=== PATIENT | female | born 1945 | race Caucasian/White ===

== ENCOUNTER 2017-04-21 07:14 | Observation (INO) | payer MEDICARE, BC ==
[~2017-04-21] VITALS: Ht 165.1 cm; Wt 47.6 kg
[~2017-04-21 07:14] MED LIST: ALBU17I INH; ALPR-138 PO; ESTR0.5T PO; FLUTI220I INH; FLUTI44I INH; IPRA17I INH; LEVO75TA3 PO; MEDR4PAK3 PO; METO50TA PO; NASAL ALLERGY SPRAY; ZITH250T PO
[2017-04-21 07:23] VITALS: BP 190/98; PULSE 70; RESP 16; TEMP 97.6; O2SAT 99
[2017-04-21] MEDS ORDERED: ASPIRIN 325 MG TAB PO ONE (07:30)
[2017-04-21] MEDS ORDERED: SODIUM CHLORIDE 0.9% FLUSH 10 ML FLUSH IVF PRN (07:30)
[2017-04-21] MEDS ORDERED: ESTR.625 PO (07:36)
[2017-04-21] MEDS ORDERED: ALPR.25 PO (07:36)
[2017-04-21] MEDS ORDERED: NITR1SUB3 SL (07:36)
[2017-04-21] MEDS ORDERED: LEVO88TA2 PO (07:36)
[2017-04-21] MEDS ORDERED: METO50TA PO (07:36)
[2017-04-21] MEDS ORDERED: ASPI-183 PO (07:36)
[2017-04-21 07:47] VITALS: BP_SYST 184; BP_SYST 190; BP_DIAS 93; BP_DIAS 98
[2017-04-21 07:48] VITALS: O2SAT 98
[2017-04-21 07:52] LABS: AUTOMATED NEUTROPHIL # 6.9 TH/MM3 (1.8-7.7); BASOPHIL % 0.3 % (0.0-2.0); EOSINOPHIL # 0.2 TH/MM3 (0-0.4); EOSINOPHIL % 2.3 % (0.0-4.0); HEMOGLOBIN 13.2 GM/DL (11.6-15.3); LYMPH % 20.7 % (9.0-44.0); MEAN CELL VOLUME 94.8 FL (80.0-100.0); MEAN CORPUSCULAR HEMOGLOBIN 31.3 PG (27.0-34.0); MONO % 3.2 % (0.0-8.0); MONOCYTE # 0.3 TH/MM3 (0-0.9); NEUT % 73.5 % (16.0-70.0); PLATELET COUNT 235 TH/MM3 (150-450); RED BLOOD COUNT 4.22 MIL/MM3 (4.00-5.30); RED CELL DISTRIBUTION WIDTH 12.3 % (11.6-17.2); WHITE BLOOD COUNT 9.4 TH/MM3 (4.0-11.0)
[2017-04-21 08:02] LABS: CHLORIDE 104 MEQ/L (98-107); SODIUM (NA) 138 MEQ/L (136-145)
[2017-04-21 08:05] LABS: CALCIUM 8.7 MG/DL (8.5-10.1)
[2017-04-21 08:06] LABS: ALBUMIN 3.4 GM/DL (3.4-5.0); BICARBONATE 27.8 MEQ/L (21.0-32.0); BLOOD UREA NITROGEN 11 MG/DL (7-18); GLUCOSE,RANDOM 82 MG/DL (74-106); MAGNESIUM 1.8 MG/DL (1.5-2.5)
[2017-04-21 08:09] LABS: ALT (GPT) 14 U/L (10-53); AST (GOT) 15 U/L (15-37); GLOMERULAR FILTRATION RATE 44 ML/MIN (>89)
[2017-04-21 08:11] LABS: TOTAL BILIRUBIN ADULT 0.3 MG/DL (0.2-1.0)
[2017-04-21 08:12] LABS: ALKALINE PHOSPHATASE 53 U/L (45-117)
[2017-04-21 08:14] LABS: TROPONIN I LESS THAN 0.02 NG/ML (0.02-0.05)
[2017-04-21 08:15] LABS: INTERNATIONAL NORMALIZED RATIO 1.1 RATIO
[2017-04-21 08:16] LABS: D-DIMER 0.2 MG/L FEU (0.00-0.50)
--- NOTE | 2017-04-21 08:24 | RADRPT ---
EXAM DATE/TIME: 04/21/2017 07:49 [facility] COMPARISON: No previous studies available for comparison. INDICATIONS : Chest pain. MEDICAL HISTORY : Hypertension. SURGICAL HISTORY : None. ENCOUNTER: Initial ACUITY: 2 weeks PAIN SCORE: 6/10 LOCATION: Bilateral chest FINDINGS: PA and lateral views of the chest demonstrate the lungs to be symmetrically aerated without evidence of mass, infiltrate or effusion. The cardiomediastinal contours are unremarkable. Osseous structure s are intact. CONCLUSION: 1. No acute cardiopulmonary disease. Cristian Miner MD on April 21, 2017 at 8:21 Board Certified Radiologist. This report was verified electronically.
[2017-04-21] MEDS ORDERED: ACETAMINOPHEN 500 MG CPLT PO PRN (09:00)
[2017-04-21] MEDS ORDERED: SODIUM CHLORIDE 0.9% FLUSH 10 ML FLUSH IV FLUSH PRN (09:00)
[2017-04-21] MEDS ORDERED: SODIUM CHLORIDE 0.9% FLUSH 10 ML FLUSH IV FLUSH SCH (09:00)
[2017-04-21] MEDS ORDERED: ASPIRIN 325 MG TAB PO SCH (09:00)
[2017-04-21] MEDS ORDERED: NITROGLYCERIN 0.4 MG SL 25 TABS/BTL SL PRN (09:00)
[2017-04-21] MEDS ORDERED: TEMAZEPAM 15 MG CAP PO PRN (09:00)
[2017-04-21] MEDS ORDERED: ONDANSETRON HCL 4 MG/2 ML VIAL IV PUSH PRN (09:00)
[2017-04-21] MEDS ORDERED: ACETAMINOPHEN/HYDROcodone 325 MG/7.5 MG TAB PO PRN (09:00)
[2017-04-21] MEDS ORDERED: ALPRAZolam 0.25 MG TAB PO PRN (09:00)
[2017-04-21] MEDS ORDERED: REGADENOSON INJ 0.4 MG/5 ML SYR IV ONE (09:02)
--- NOTE | 2017-04-21 09:06 | PD ---
HPI Chief Complaint: Chest Pain Time Seen by Provider: 07:25 Travel History International Travel<30 days: No Contact w/Intl Traveler<30days: No Traveled to known affect area: No History of Present Illness HPI This is a 71-year-old female with history of hypertension presents to the ER complaining of chest pain. Pain is 7 out of 10, substernal, radiates to the left arm and the neck. Pain is started about 2 hours prior to arrival to the ER and lasted for about 20 minutes. Patient states that for the last 2 weeks pain comes and goes randomly and subsides after 20-30 minutes usually. Patient states that pain occurs at rest and it is associated with sweating and palpitations but no shortness of breath or abdominal pain. Patient had aspirin metoprolol 50 mg prior to arrival, she has a prescription for nitroglycerin sublingual but she was afraid to take it because she was told it causes headache. PFSH Past Medical History Anxiety: Yes Diminished Hearing: No Hypertension: Yes Immunizations Current: No Thyroid Disease: Yes Past Surgical History Appendectomy: Yes Hysterectomy: Yes Social History Alcohol Use: No Tobacco Use: No Substance Use: No Allergies-Medications (Allergen,Severity, Reaction): Coded Allergies: cefepime (Unverified Allergy, Severe, 04/21/17) ceftaroline fosamil (Unverified Allergy, Severe, 04/21/17) diatrizoate meglumine (Unverified Allergy, Severe, 04/21/17) gadobenic acid (Unverified Allergy, Severe, 04/21/17) gadodiamide (Unverified Allergy, Severe, 04/21/17) gadoteridol (Unverified Allergy, Severe, 04/21/17) iodixanol (Unverified Allergy, Severe, 04/21/17) iohexol (Unverified Allergy, Severe, 04/21/17) penicillin G (Unverified Allergy, Severe, 04/21/17) Reported Meds & Prescriptions Reported Meds & Active Scripts Active Reported Nitroglycerin SL (Nitroglycerin) 0.4 Mg Subl 0.4 Mg SL DIRECTED PRN ONE TABLET UNDER THE TONGUE NEEDED FOR CHEST PAIN, MAY REPEAT EVERY FIVE MINUTES FOR A TOTAL OF 3 DOSES OR CALL 911 IF NO RELIEF Xanax (Alprazolam) 0.25 Mg Tab 0.25 Mg PO Q8H PRN Levothyroxine (Levothyroxine Sodium) 88 Mcg Tab 88 Mcg PO DAILY Premarin (Estrogens Conjugated) 0.625 Mg Tab 0.625 Mg PO DAILY Aspirin 325 Mg Tab 325 Mg PO ONCE Metoprolol Tartrate 50 Mg Tab 50 Mg PO BID Review of Systems Except as stated in HPI: all other systems reviewed are Neg Physical Exam Narrative GENERAL: Alert oriented 3 no acute distress. SKIN: Focused skin assessment warm/dry. HEAD: Atraumatic. Normocephalic. EYES: Pupils equal and round. No scleral icterus. No injection or drainage. ENT: No nasal bleeding or discharge. Mucous membranes pink and moist. NECK: Trachea midline. No JVD. CARDIOVASCULAR: Regular rate and rhythm. No murmur appreciated. RESPIRATORY: No accessory muscle use. Clear to auscultation. Breath sounds equal bilaterally. GASTROINTESTINAL: Abdomen soft, non-tender, nondistended. Hepatic and splenic margins not palpable. MUSCULOSKELETAL: No obvious deformities. No clubbing. No cyanosis. No edema. NEUROLOGICAL: Awake and alert. No obvious cranial nerve deficits. Motor grossly within normal limits. Normal speech. PSYCHIATRIC: Appropriate mood and affect; insight and judgment normal. Data Data Last Documented VS Vital Signs Date Time Temp Pulse Resp B/P (MAP) Pulse Ox O2 Delivery O2 Flow Rate FiO2 04/21/17 07:48 98 Room Air 04/21/17 07:23 97.6 70 16 Orders Orders Electrocardiogram (04/21/17 07:27) B-Type Natriuretic Peptide (04/21/17 07:27) Ckmb (Isoenzyme) Profile (04/21/17 07:27) Complete Blood Count With Diff (04/21/17:27) Comprehensive Metabolic Panel (04/21/17:27) D-Dimer (04/21/17:27) Magnesium (Mg) (04/21/17 07:27) Prothrombin Time / Inr (Pt) (04/21/17:27) Act Partial Throm Time (Ptt) (04/21/17 07:27) Troponin I (04/21/17:27) Ecg Monitoring (04/21/17 07:27) Bilateral Bp Monitoring (04/21/17:27) Iv Access Insert/Monitor (04/21/17:27) Oximetry (04/21/17 07:27) Oxygen Administration (04/21/17 07:27) Aspirin (Aspirin) (04/21/17 07:30) Sodium Chloride 0.9% Flush (Ns Flush) (04/21/17 07:30) Chest, Pa & Lat (04/21/17 07:27) Admit Order (Ed Use Only) (04/21/17 08:59) Labs Laboratory Tests Test 04/21/17 07:44 White Blood Count 9.4 TH/MM3 Red Blood Count 4.22 MIL/MM3 Hemoglobin 13.2 GM/DL Hematocrit 40.0 % Mean Corpuscular Volume 94.8 FL Mean Corpuscular Hemoglobin 31.3 PG Mean Corpuscular Hemoglobin Concent 33.0 % Red Cell Distribution Width 12.3 % Platelet Count 235 TH/MM3 Mean Platelet Volume 8.0 FL Neutrophils (%) (Auto) 73.5 % Lymphocytes (%) (Auto) 20.7 % Monocytes (%) (Auto) 3.2 % Eosinophils (%) (Auto) 2.3 % Basophils (%) (Auto) 0.3 % Neutrophils # (Auto) 6.9 TH/MM3 Lymphocytes # (Auto) 2.0 TH/MM3 Monocytes # (Auto) 0.3 TH/MM3 Eosinophils # (Auto) 0.2 TH/MM3 Basophils # (Auto) 0.0 TH/MM3 CBC Comment DIFF FINAL Differential Comment Prothrombin Time 11.0 SEC Prothromb Time International Ratio 1.1 RATIO Activated Partial Thromboplast Time 27.4 SEC D-Dimer Quantitative (PE/DVT) 0.20 MG/L FEU Blood Urea Nitrogen 11 MG/DL Creatinine 1.20 MG/DL Random Glucose 82 MG/DL Total Protein 7.0 GM/DL Albumin 3.4 GM/DL Calcium Level 8.7 MG/DL Magnesium Level 1.8 MG/DL Alkaline Phosphatase 53 U/L Aspartate Amino Transf (AST/SGOT) 15 U/L Alanine Aminotransferase (ALT/SGPT) 14 U/L Total Bilirubin 0.3 MG/DL Sodium Level 138 MEQ/L Potassium Level 3.9 MEQ/L Chloride Level 104 MEQ/L Carbon Dioxide Level 27.8 MEQ/L Anion Gap 6 MEQ/L Estimat Glomerular Filtration Rate 44 ML/MIN Total Creatine Kinase 48 U/L Troponin I LESS THAN 0.02 NG/ML B-Type Natriuretic Peptide 648 PG/ML MDM Medical Decision Making Medical Screen Exam Complete: Yes Emergency Medical Condition: Yes Differential Diagnosis Acute coronary syndrome, pneumothorax, pulmonary embolism, pneumonia. Narrative Course This is a 71year-old female with history of hypertension presenting here complaining of chest pain. Chest pain is typical, EKG shows Q waves in lead II , aVF and V1 through V4. There is a T-wave inversion on V3 and V4 unsure if that is new or old. Troponin first set is negative, she received aspirin and metoprolol prior to arrival. Patient heart rate was in the lower side and that was not given beta-blockers. Patient will be admitted for 23 hour OBS for further evaluation. Diagnosis Primary Impression: ACS (acute coronary syndrome) Admitting Information Admitting Physician Requests: Observation Condition: Stable [place] Victor MD Apr 21, 2017 09:06
[2017-04-21] MEDS ORDERED: LEVOTHYROXINE SODIUM 88 MCG TAB PO SCH (09:15)
[2017-04-21] MEDS ORDERED: METOPROLOL TARTRATE 50 MG TAB PO SCH (09:15)
[2017-04-21] MEDS ORDERED: MORPHINE SULFATE 2 MG/ML INJ IV PUSH PRN (09:45)
[2017-04-21 10:00] VITALS: O2SAT 98
[2017-04-21] MEDS ORDERED: MORPHINE SULFATE 2 MG/ML INJ IV PUSH ONE (10:00)
[2017-04-21 10:07] VITALS: BP 180/92; PULSE 65; RESP 16; O2SAT 98
[2017-04-21 11:24] LABS: TROPONIN I LESS THAN 0.02 NG/ML (0.02-0.05)
--- NOTE | 2017-04-21 13:03 | HHI.HP ---
[facility] Primary Care Physician Timothy Seo MD Admission Diagnosis ACUTE CORONARY SYNDROME Diagnoses: (1) Chest pain Diagnosis: Principal Chief Complaint: Chest pain Travel History International Travel<30 Days: No Contact w/Intl Traveler <30 Da: No Traveled to Known Affected Are: No History of Present Illness 71-year-old female with known history of hypertension, hyper lipidemia , hypothyroidism, chronic kidney disease stage III who presented to the hospital because of a 2-1/2 week history of intermittent chest pain. Patient states that over the last 2 and half weeks she has been experiencing chest pain at least daily. She states that the pain is located in the middle part of her chest radiating into her left arm and neck. Last for approximately 20 minutes at a time and resolves on its own. She indicates that it is exertional and is a 10/10 on a pain scale. She usually takes an aspirin and her beta-racquel, she lays down and relaxes the pain does go away. She denied any nausea, vomiting, diaphoresis, shortness of breath, lightheadedness, dizziness. Patient did go to her primary medical doctor's office and was given a prescription for nitroglycerin, had EKG performed and made an appointment for cardiology. Patient did have appointment however the office had to cancel in her next appointment is not until May 05. Patient states that last night she had the chest discomfort again and when she woke up this morning it started at 545 this morning. She came to emergency department for evaluation. Patient had workup done which did indicate normal troponin. There does appear to be some baseline abnormality with the EKG, however follow-up EKG shows normal sinus rhythm. It was recommended by the ER physician that the patient be inserted in the chest pain center for further evaluation and management. Review of Systems Cardiovascular: COMPLAINS OF: Chest pain Except as stated in HPI: all other systems reviewed are Neg Past Family Social History Past Medical History Hypertension Hyper lipidemia Hypothyroidism Chronic kidney disease stage III Past Surgical History Hysterectomy Appendectomy Reported Medications Reported Meds & Active Scripts Active Reported Nitroglycerin SL (Nitroglycerin) 0.4 Mg Subl 0.4 Mg SL DIRECTED PRN ONE TABLET UNDER THE TONGUE NEEDED FOR CHEST PAIN, MAY REPEAT EVERY FIVE MINUTES FOR A TOTAL OF 3 DOSES OR CALL 911 IF NO RELIEF Xanax (Alprazolam) 0.25 Mg Tab 0.25 Mg PO Q8H PRN Levothyroxine (Levothyroxine Sodium) 88 Mcg Tab 88 Mcg PO DAILY Premarin (Estrogens Conjugated) 0.625 Mg Tab 0.625 Mg PO DAILY Aspirin 325 Mg Tab 325 Mg PO ONCE Metoprolol Tartrate 50 Mg Tab 50 Mg PO BID Allergies: Coded Allergies: cefepime (Unverified Allergy, Severe, 04/21/17) ceftaroline fosamil (Unverified Allergy, Severe, 04/21/17) diatrizoate meglumine (Unverified Allergy, Severe, 04/21/17) gadobenic acid (Unverified Allergy, Severe, 04/21/17) gadodiamide (Unverified Allergy, Severe, 04/21/17) gadoteridol (Unverified Allergy, Severe, 04/21/17) iodixanol (Unverified Allergy, Severe, 04/21/17) iohexol (Unverified Allergy, Severe, 04/21/17) penicillin G (Unverified Allergy, Severe, 04/21/17) Family History Reviewed and significant for brother having heart disease with myocardial infarction in his early 50s. Mother from brain cancer, father from lung cancer Social History Patient continues to smoke a half a pack of cigarettes a day since she was 22 years old. Denies any alcohol or illicit drug Physical Exam Vital Signs Vital Signs Date Time Temp Pulse Resp B/P (MAP) Pulse Ox O2 Delivery O2 Flow Rate FiO2 04/21/17 11:30 04/21/17 10:07 65 16 180/92 (121) 98 Room Air 04/21/17 10:00 98 21 04/21/17 07:48 98 Room Air 04/21/17 07:47 184/93 (123) 190/98 (128) 04/21/17 07:23 97.6 70 16 190/98 (128) 99 Physical Exam GENERAL: Well-developed, well-nourished, in no acute distress. alert and orientated HEENT: Head is normocephalic without any lesions or masses noted. Facial features are symmetric. Eyes: Pupils equal round reactive to light. Extraocular muscles are intact. Conjunctivae were clear. Oropharyngeal: Pharynx without any erythema edema. Tongue is midline without deviation. Buccal mucosa is moist without any masses or lesions NECK: Supple without any masses. Trachea midline no deviation. No JVD, no bruits are appreciated CARDIAC: Regular rhythm, regular rate. S1/S2 are heard. No murmurs gallops or rubs. LUNGS: Clear to auscultation bilaterally. No wheeze, rhonchi or rales. No use of accessory muscles on inspiration or expiration. ABDOMEN: Soft, nontender. Nondistended. Bowel sounds heard in all 4 quadrants. No organomegaly or masses. Negative rebound, negative guarding EXTREMITIES: No edema, pulses are equal bilaterally. No cyanosis or clubbing NEUROLOGY: Mood and affect appear appropriate. Cranial nerves II through XII grossly intact. Muscle strength 5/5 in upper and lower extremities bilaterally. Deep tendon reflexes are 2+ in upper and lower extremities bilaterally. Laboratory Laboratory Tests Test 04/21/17 07:44 04/21/17 10:56 White Blood Count 9.4 Red Blood Count 4.22 Hemoglobin 13.2 Hematocrit 40.0 Mean Corpuscular Volume 94.8 Mean Corpuscular Hemoglobin 31.3 Mean Corpuscular Hemoglobin Concent 33.0 Red Cell Distribution Width 12.3 Platelet Count 235 Mean Platelet Volume 8.0 Neutrophils (%) (Auto) 73.5 Lymphocytes (%) (Auto) 20.7 Monocytes (%) (Auto) 3.2 Eosinophils (%) (Auto) 2.3 Basophils (%) (Auto) 0.3 Neutrophils # (Auto) 6.9 Lymphocytes # (Auto) 2.0 Monocytes # (Auto) 0.3 Eosinophils # (Auto) 0.2 Basophils # (Auto) 0.0 CBC Comment DIFF FINAL Differential Comment Prothrombin Time 11.0 Prothromb Time International Ratio 1.1 Activated Partial Thromboplast Time 27.4 D-Dimer Quantitative (PE/DVT) 0.20 Blood Urea Nitrogen 11 Creatinine 1.20 Random Glucose 82 Total Protein 7.0 Albumin 3.4 Calcium Level 8.7 Magnesium Level 1.8 Alkaline Phosphatase 53 Aspartate Amino Transf (AST/SGOT) 15 Alanine Aminotransferase (ALT/SGPT) 14 Total Bilirubin 0.3 Sodium Level 138 Potassium Level 3.9 Chloride Level 104 Carbon Dioxide Level 27.8 Anion Gap 6 Estimat Glomerular Filtration Rate 44 Total Creatine Kinase 48 57 Troponin I LESS THAN 0.02 LESS THAN 0.02 B-Type Natriuretic Peptide 648 Result Diagram: 04/21/1774304/21/17743 Imaging Last Impressions Chest X-Ray 04/21/17726 Signed Impressions: Service Date/Time: Friday, April 21, 2017 07:49 - CONCLUSION: 1. No acute cardiopulmonary disease. MD Dot Tejada VTE Risk Assessment Dot VTE Risk Assessment: No/Low Risk (score <= 1) Caprini Risk Assessment Model Point Value = 1 Point Value = 2 Point Value = 3 Point Value = 5 Age 41-60 Minor surgery BMI > 25 kg/m2 Swollen legs Varicose veins or History of unexplained or recurrent spontaneous Oral contraceptives or hormone replacement Sepsis (< 1 month) Serious lung disease, including pneumonia (< 1 month) Abnormal pulmonary function Acute myocardial infarction Congestive heart failure (< 1 month) History of inflammatory bowel disease Medical patient at bed rest Age 61-74 Arthroscopic surgery Major open surgery (> 45 min) Laparoscopic surgery (> 45 min) Malignancy Confined to bed (> 72 hours) Immobilizing plaster cast Central venous access Age >= 75 History of VTE Family history of VTE Factor V Leiden Prothrombin [id number] Lupus anticoagulant Anticardiolipin antibodies Elevated serum homocysteine Heparin-induced thrombocytopenia Other congenital or acquired thrombophilia Stroke (< 1 month) Elective arthroplasty Hip, pelvis, or leg fracture Acute spinal cord injury (< 1 month) Prophylaxis Regimen Total Risk Factor Score Risk Level Prophylaxis Regimen 0-1 Low Early ambulation 2 Moderate Order ONE of the following: *Sequential Compression Device (SCD) *Heparin 5000 units SQ BID 3-4 Higher Order ONE of the following medications: *Heparin 5000 units SQ TID *Enoxaparin/Lovenox 40 mg SQ daily (WT < 150 kg, CrCl > 30 mL/min) *Enoxaparin/Lovenox 30 mg SQ daily (WT < 150 kg, CrCl > 10-29 mL/min) *Enoxaparin/Lovenox 30 mg SQ BID (WT < 150 kg, CrCl > 30 mL/min) AND/OR *Sequential Compression Device (SCD) 5 or more Highest Order ONE of the following medications: *Heparin 5000 units SQ TID (Preferred with Epidurals) *Enoxaparin/Lovenox 40 mg SQ daily (WT < 150 kg, CrCl > 30 mL/min) *Enoxaparin/Lovenox 30 mg SQ daily (WT < 150 kg, CrCl > 10-29 mL/min) *Enoxaparin/Lovenox 30 mg SQ BID (WT < 150 kg, CrCl > 30 mL/min) AND *Sequential Compression Device (SCD) Assessment and Plan Assessment and Plan Chest pain Patient with increased risk factors include age, hypertension, hyperlipidemia , history of tobacco use, family history of heart disease Patient has been ruled out for acute coronary event with serial cardiac enzymes to have remained negative Serial EKGs were reviewed and at the present time shows sinus rhythm without any changes Myocardial perfusion study was performed and indicated no significant reversibility to suggest ischemia. Ejection fraction 65%. Low risk continue aspirin, beta-racquel, nitroglycerin as needed Hypertension, hyperlipidemia Resume home medications Hypothyroidism Resume replacement therapy DVT prevention Low risk, early ambulation Sequential compression devices Discharge disposition Discharge home in stable condition Activity: Ad mel. Diet: Healthy heart diet Medication per medication reconciliation Follow-up with primary medical doctor in 1 week Bruce Rosas Apr 21, 2017 13:03
[2017-04-21 14:11] VITALS: BP 155/92; PULSE 68; RESP 18; O2SAT 100
[2017-04-21 15:19] LABS: TROPONIN I LESS THAN 0.02 NG/ML (0.02-0.05)
--- NOTE | 2017-04-21 16:53 | RADRPT ---
EXAM DATE/TIME: 04/21/2017 15:01 [facility] COMPARISON: None. INDICATIONS : Substernal chest pain radiating to the left arm and neck with diaphoresis and palpitations. Angina. DOSE: 26.7 mCi Tc99m Myoview at stress. 8.8 mCi Tc99m Myoview at rest. 0.4 mg Lexiscan STRESS SYMPTOMS: Chest heaviness and dyspnea. EJECTION FRACTION: 65% MEDICAL HISTORY : Hypertension. SURGICAL HISTORY : Hysterectomy. Appendectomy. ENCOUNTER: Initial ACUITY: 1 day PAIN SCALE: 7/10 LOCATION: Substernal chest TECHNIQUE: The patient underwent pharmacologic stress with infusion of prescribed dose. Continuous ECG tracing was monitored during stress. Gated SPECT imaging was performed after stress and conventional SPECT i maging was performed at rest. The examination was performed on a SPECT/CT scanner, both attenuation and non-corrected datasets were reviewed. FINDINGS: DISTRIBUTION: The maximum perfused segment at stress is in the anterior wall. PERFUSION STUDY: The pattern of perfusion at stress demonstrates fixed perfusion defect in the inferior wall. GATED STUDY: There is intact wall motion and thickening without hypokinetic or dyskinetic segments. CONCLUSION: 1. No significant reversibility to suggest ischemia. Fixed decrease perfusion in the inferior wall co uld represent prior infarct. 2. Normal wall motion with ejection fraction 65%. RISK CATEGORY: Low (<1% Annual Mortality Rate) Zia Wood MD on April 21, 2017 at 16:49 Board Certified Radiologist. This report was verified electronically.
--- NOTE | 2017-04-21 17:20 | HHI.DCPOC ---
Discharge Care Plan Diagnosis: (1) Chest pain Goals to Promote Your Health * To prevent worsening of your condition and complications * To maintain your health at the optimal level Directions to Meet Your Goals Take your medications as prescribed Follow your dietary instruction Follow activity as directed Keep your appointments as scheduled Take your immunizations and boosters as scheduled If your symptoms worsen call your PCP, if no PCP go to Urgent Care Center or Emergency Room Smoking is Dangerous to Your Health. Avoid second hand smoke Call the 24-hour hour crisis hotline for domestic abuse at Bruce Rosas Apr 21, 2017 17:20
--- NOTE | 2017-04-21 19:04 | EKG ---
Date Performed: 04/21/2017 Time Performed: 10:48:18 PTAGE: 71 years EKG: SINUS BRADYCARDIA DELAYED R WAVE PROGRESSION BORDERLINE ECG PREVIOUS TRACING : 04/21/2017 07.18 Since the previous tracing, no significant change noted DOCTOR: Su Argueta Interpretating Date/Time 04/21/2017 19:03:25
--- NOTE | 2017-04-21 19:16 | EKG ---
Date Performed: 04/21/2017 Time Performed: 07:18:54 PTAGE: 71 years EKG: Sinus rhythm WITH SINUS ARRHYTHMIA POSSIBLE LEFT ATRIAL ENLARGEMENT INFERIOR MYOCARDIAL INFARCTION ANTEROSEPTAL M YOCARDIAL INFARCTION ABNORMAL ECG NO PREVIOUS TRACING DOCTOR: Su rAgueta Interpretating Date/Time 04/21/2017 19:15:18
--- NOTE | 2017-04-21 20:12 | TR ---
Date Performed: 04/21/2017 Time Performed: 15:33:11 DOCTOR: Teresa Esquivel DRUG LIST: CLINICAL HISTORY: REASON FOR TEST: Chest pain REASON FOR ENDING: OBSERVATION: CONCLUSION: Lexiscan stress test was performed under standard four minute protocol. Radionuclid e was injected one minute prior to ending the test. No electrocardiographic abormalities were present to suggest ischemia. Nuclear imaging and interpretation are pending. COMMENTS:
--- NOTE | 2017-04-22 23:46 | EKG ---
Date Performed: 04/21/2017 Time Performed: 14:29:47 PTAGE: 71 years EKG: SINUS BRADYCARDIA WITH SINUS ARRHYTHMIA MODERATE ST DEPRESSION ABNORMAL ECG PREVIOUS TRACING : 04/21/2017 10.48 Since the previous tracing, no significant change noted DOCTOR: Walter Antonio Interpretating Date/Time 04/22/2017 23:42:33
== END 2017-04-21 17:59 | disposition home or self-care (01) ==
LOC: PHED 07:14 → PHEDA 09:01 → PH3A 11:22
PROVIDERS: ADMIT Hospitalist; ATTEND Hospitalist
DX: I24.9 Acute ischemic heart disease, unspecified (principal); I49.9 Cardiac arrhythmia, unspecified; R00.1 Bradycardia, unspecified; R94.31 Abnormal electrocardiogram [ECG] [EKG]; I12.9 Hypertensive chronic kidney disease with stage 1 through stage 4 chronic kidney disease, or unspecified chronic kidney disease; N18.3 Chronic kidney disease, stage 3 (moderate); E78.5 Hyperlipidemia, unspecified; E03.9 Hypothyroidism, unspecified; F41.9 Anxiety disorder, unspecified; F17.210 Nicotine dependence, cigarettes, uncomplicated; Z79.899 Other long term (current) drug therapy; Z79.82 Long term (current) use of aspirin; Z82.49 Family history of ischemic heart disease and other diseases of the circulatory system
CPT/HCPCS: 71046; 78452; 80053; 82550; 83735; 83880; 84484; 85025; 85379; 85610; 85730; 93005; 93017; 96374; 96376; 99285; A9502; G0378; J2270; J2785